=== PATIENT | male | born 1965 | race African-American/Black ===

== ENCOUNTER 2021-10-01 06:34 | Emergency (ER) | payer BC ==
[~2021-10-01] VITALS: Ht 170.2 cm; Wt 64.2 kg
[2021-10-01] MEDS ORDERED: PRED20TA PO (07:47)
--- NOTE | 2021-10-01 07:47 | PHYS DOC ---
Past Medical History Past Surgical History: No Surgical History Smoking Status: Current Every Day Smoker Alcohol Use: Occasionally General Adult EDM: Chief Complaint: UPPER EXTREMITY PAIN HPI: HPI: Patient is a 56 year old male without pertinent medical history who presents with right arm pain. Pain goes from his shoulder to his elbow. Worse with movement. Started on Thursday of last week when he woke up. 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 Does not recall a specific strain or trauma. Denies any fever/chills, skin changes, joint swelling, bruising. States that he had this once before several years ago and it went away on its own. Denies any numbness or weakness. Denies any pain coming from the neck towards the shoulder. Review of Systems: Review of Systems: Constitutional: Denies fever or chills. [] HENT: Denies nasal congestion or sore throat. [] Respiratory: Denies cough or shortness of breath. [] Cardiovascular: Denies chest pain Musculoskeletal: Reports right upper extremity pain. Denies neck pain. Denies joint swelling. Integument: Denies rash, bruising Neurologic: Denies headache, focal weakness Heart Score: C/O Chest Pain: No Allergies: Allergies: Allergies Coded Allergies Type Severity Reaction Last Updated Verified No Known Drug Allergies 10/01/21 No Physical Exam: PE: Constitutional: Well developed, well nourished. No distress. HENT: Normocephalic, atraumatic Eyes:conjunctiva normal, no discharge. [] Neck: Normal range of motion, no tenderness, supple, no stridor. [] Cardiovascular: Heart rate regular Lungs & Thorax: Normal work of breathing Skin: No rashes, bruising, erythema, or overlying skin changes in the right upper extremity. Extremities: Full painless range of motion of the shoulder and elbow and wrist. No swelling or warmth at the shoulder, elbow, wrist. 5/5 strength of shoulder abduction, adduction, internal/external rotation. 5/5 strength of elbow flexion and extension. 5/5 strength in wrist flexion/extension, finger abduction, thumb opposition, thumb extension. Neurologic: Alert and oriented X 3, normal motor function, normal sensory function, no focal deficits noted. [] Current Patient Data: Vital Signs: Vital Signs Date Time Temp Pulse Resp B/P (MAP) Pulse Ox O2 Delivery O2 Flow Rate FiO2 10/01/21 07:16 97.2 75 16 182/84 (116) 99 97.2 EKG: EKG: [] Radiology/Procedures: Radiology/Procedures: [] Course & Med Decision Making: Course & Med Decision Making Pertinent Labs and Imaging studies reviewed. (See chart for details) Patient 56-year-old male who presents with pain around the area of his right b icep, shoulder, and elbow. Atraumatic, do not feel that plain films would be helpful. Full strength and ROM and intact rotator cuff. No pain radiating from the neck to suggest a cervical radiculopathy. No evidence of septic arthritis, bursitis, or cellulitis. Seems most consistent with muscular strain vs osteoarthritis, I recommended continuing conservative therapy. He does not have a follow up, so I wrote for a "wait and see" Rx of prednisone should his conservative management fail. Counseled on discontinuation of NSAID's should he take a steroid. Dragon Disclaimer: Michele Disclaimer: This electronic medical record was generated, in whole or in part, using a voice recognition dictation system. Departure Departure Impression: Primary Impression: Right arm pain Disposition: HOME / SELF CARE / HOMELESS Condition: STABLE Additional Instructions: Your pain seems most consistent with either an arthritis or muscular strain near the shoulder. For pain tylenol and ibuprofen are best used on a schedule. Please alternate between the two. -Tylenol 1000 mg every 6 hours (do not exceed 4000 mg in one day) -Ibuprofen 400 mg every 6 hours. Take with food. Do not take for more than 1 week. Please ice the shoulder 24 times a day for 20 minutes at a time. Please try to rest your shoulder and avoid overhead lifting if at all possible. If the above measures do not provide improvement in your pain in the next 3 days you can order picker/assembler your prescription for prednisone Please take 1 tab daily. If you do take the prednisone you need to discontinue any ibuprofen, Aleve, or aspirin. If you develop fevers/chills, joint swelling, chest pain, weakness in your arm, or other new/concerning symptoms you need to return to the emergency department immediately for reevaluation. Scripts Prednisone (PREDNISONE) 20 Mg Tablet 2 TAB PO DAILY, #5 TAB 0 Refills Prov: CAROL RENE MD 10/01/21 CAROL RENE MD Oct 01, 2021 07:47
[2021-10-01 07:50] VITALS: BP 164/79
== END 2021-10-01 07:53 | disposition home or self-care (01) ==
LOC: ER 06:34
DX: M79.601 Pain in right arm (principal); F17.200 Nicotine dependence, unspecified, uncomplicated
CPT/HCPCS: 99283